=== PATIENT | male | born 1970 | race Two or more races ===

== ENCOUNTER → 2016-12-22 16:21 | Emergency (ER) | payer SELFPAY ==
--- NOTE | 2016-12-22 16:39 | ED PDOC ---
Arrival/HPI - General Time Seen by Provider: 12/22/16 16:32 Historian: Patient - History of Present Illness Narrative History of Present Illness (Text): 12/22/16 16:34 46 y/o male, no pmh, penicillin allergy, last tetanus over 10 years ago, c/o lt hand 5th digit finger bite wound by the dog x 2 hours at the job site. Pt. 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 hand 5th digit dorsum region, no numbness or tingling, no difficulty moving the finger, no other medical or psychological complaints. As per the patient, the dog has all immunization up to date including rabies. Past Medical History - Provider Review Nursing Documentation Reviewed: Yes Family/Social History - Physician Review Nursing Documentation Reviewed: Yes Family/Social History: Unknown Family HX Allergies/Home Meds Allergies/Adverse Reactions: Allergies Penicillins Allergy (Verified 12/22/16 16:35) ANAPHYLAXIS Home Medications: Home Meds Medication Instructions Recorded Confirmed No Known Home Med 12/22/16 12/22/16 Review of Systems - Review of Systems Constitutional: absent: Fatigue Eyes: absent: Vision Changes ENT: absent: Hearing Changes Respiratory: absent: SOB, Cough Cardiovascular: absent: Chest Pain Gastrointestinal: absent: Abdominal Pain, Nausea, Vomiting Skin: Skin Lesions, Other (+bite wound). absent: Rash, Pruritis, Laceration, Abscess, Ulcer, Cellulitis Neurological: absent: Headache, Dizziness Physical Exam Vital Signs Reviewed: Yes Vital Signs Temp Pulse Resp BP Pulse Ox 12/22/16 16:22 99.5 F 108 H 16 129/84 98 Temperature: Afebrile Blood Pressure: Normal Pulse: Tachycardic Respiratory Rate: Normal Appearance: Positive for: Well-Appearing, Non-Toxic, Comfortable Pain Distress: Mild Mental Status: Positive for: Alert and Oriented X 3 - Systems Exam Head: Present: Atraumatic, Normocephalic Pupils: Present: PERRL Extroacular Muscles: Present: EOMI Conjunctiva: Present: Normal Neck: Present: Normal Range of Motion Respiratory/Chest: Present: Clear to Auscultation, Good Air Exchange. No: Respiratory Distress, Accessory Muscle Use Cardiovascular: Present: Regular Rate and Rhythm, Normal S1, S2. No: Murmurs Abdomen: Present: Normal Bowel Sounds. No: Tenderness, Distention, Peritoneal Signs Back: Present: Normal Inspection Upper Extremity: Present: Normal Inspection, Other (Lt. hand 5th digit dorsum aspect on the middle phalanex visible skin tearing approx. 1cm diameter with no active bleeding, FROM without limitation, sensation intact, motor 5/5, no visible foreign bodies, neurovascular intact. ). No: Cyanosis, Edema Lower Extremity: Present: Normal Inspection. No: Edema Neurological: Present: GCS=15, CN II-XII Intact, Speech Normal Skin: Present: Warm, Dry, Normal Color. No: Rashes Psychiatric: Present: Alert, Oriented x 3, Normal Insight, Normal Concentration Medical Decision Making ED Course and Treatment: 12/22/16 16:35 -doxy and clindamycin since penicillin allergy -motrin -will wound irrigate with normal saline 1000cc, clean with betadine, bacitracin and gauze dressing -xray r/o foreign bodies or bony injuries. 12/22/16 16:41 -I was notify by the MEDICAL COST CONSULTANT that the patient receive a phone call from his job, he wants to go and left the ER with no bleeding from the wound. Pt. didn't receive the medication or any wound management. Pt. didn't wait for me to discuss with him about the wound care and medical plan of care. - PA / STATISTICAL REPORTING ANALYST / Resident Statement /DO has reviewed & agrees with the documentation as recorded. Disposition/Present on Arrival - Present on Arrival Any Indicators Present on Arrival: No History of DVT/PE: No History of Uncontrolled Diabetes: No Urinary Catheter: No History of Decub. Ulcer: No - Disposition Have Diagnosis and Disposition been Completed?: Yes Diagnosis: Dog bite, Non-compliance Disposition: ELOPEMENT - ER ONLY Disposition Time: 16:43 Condition: GOOD
[2016-12-22 17:05] VITALS: BP 129/84; PULSE 108; RESP 16; TEMP 99.5; O2SAT 98
== END | disposition left against medical advice (07) ==
LOC: ED 16:21
DX: S61.257A Open bite of left little finger without damage to nail, initial encounter (principal); W54.0XXA Bitten by dog, initial encounter; Y99.0 Civilian activity done for income or pay; Z91.19 Patient's noncompliance with other medical treatment and regimen